=== PATIENT | female | born 1960 | race Caucasian/White ===

== ENCOUNTER 2023-04-03 06:41 | Day surgery (SDC) | payer OTHER, SELFPAY ==
[2023-04-03] VITALS (9 sets, daily range): BP systolic 117–159; BP diastolic 48–81; BMI 30.1
[2023-04-03] MEDS: CELEBREX 200 MG PO (07:18)
[2023-04-03] MEDS: TYLENOL 1000 MG PO (07:18)
[2023-04-03] MEDS: NORMOSOL-R 1000 IV (07:38)
--- NOTE | 2023-04-03 10:59 | PTCARENOTE ---
Noticed inverted t wave in lead 5 different from pre op ecg. Dr Man evaluated patient and compared ECG's. Dr Man does not want a 12 lead ECG
== END 2023-04-03 12:51 | disposition home or self-care (01) ==
LOC: SDS 06:41
PROVIDERS: ATTENDING PHYSICIAN Orthopaedic Surgery
DX: M75.111 Incomplete rotator cuff tear or rupture of right shoulder, not specified as traumatic (principal); M75.41 Impingement syndrome of right shoulder; S46.211A Strain of muscle, fascia and tendon of other parts of biceps, right arm, initial encounter; X58.XXXA Exposure to other specified factors, initial encounter
CPT/HCPCS: 29827; 29828; C1713

== ENCOUNTER → 2024-07-07 14:19 | Outpatient (REF) | payer OTHER, SELFPAY | LOC: WDC 14:19 | PROVIDERS: ATTENDING PHYSICIAN Family Medicine | DX: E04.1 Nontoxic single thyroid nodule (principal); Z12.31 Encounter for screening mammogram for malignant neoplasm of breast | CPT/HCPCS: 76536; 77063; 77067 ==

== ENCOUNTER → 2024-07-27 09:25 | Outpatient (REF) | payer OTHER, SELFPAY ==
[2024-07-27 10:03] VITALS: BP 147/75; BP_SYST 60
== END ==
LOC: RADI 09:25
PROVIDERS: ATTENDING PHYSICIAN Family Medicine
DX: E04.1 Nontoxic single thyroid nodule (principal)
CPT/HCPCS: 88173; 10005